=== PATIENT | male | born 1960 | race Caucasian/White ===

== ENCOUNTER → 2019-02-26 | Outpatient (CLI) | payer BC ==
[2019-02-26 15:40] LABS: HCT 43.1 % (39.0-53.0); HGB 14.4 gm/dL (13.0-17.5); MCH 31.6 pg (25.0-35.0); MCHC 33.5 g/dL (31.0-37.0); MCV 94.4 fL (80.0-100.0); Mean Platelet Volume 7.7; Platelet Count 270 k/uL (150-450); RBC 4.57 m/uL (4.30-5.90); RDW 13.8 % (11.5-15.5); WBC 12.1 k/uL (3.8-10.6)
[2019-02-26 15:50] LABS: African American GFR (CKD) >90 (>60 ml/min/1.73 sqM); Anion Gap 7 mmol/L; Blood Urea Nitrogen 15 mg/dL (9-20); Carbon Dioxide 28 mmol/L (22-30); Chloride 102 mmol/L (98-107); Potassium 4.6 mmol/L (3.5-5.1); Sodium 137 mmol/L (137-145)
== END | disposition home or self-care (01) ==
LOC: LABPAT 14:50
PROVIDERS: ATTEND Internal Medicine Cardiovascular Disease
DX: Z01.812 Encounter for preprocedural laboratory examination (principal); I48.1 Persistent atrial fibrillation
CPT/HCPCS: 36415; 80051; 82565; 84520; 85027

== ENCOUNTER 2019-03-01 07:18 | Day surgery (SDC) | payer BC ==
[2019-02-26 11:53] VITALS: BMI 37.2
[~2019-03-01 07:18] MED LIST: SODIUM CHLORIDE 0.9% 1,000 ML IV SCH
[2019-03-01] MEDS ORDERED: SODIUM CHLORIDE 0.9% 500 ML 500 ML IV ONE (07:39)
[2019-03-01 07:46] VITALS: TEMP 97.9
[2019-03-01] MEDS ORDERED: PROPOFOL 10 MG/ML 20 ML VIAL IV ONE (08:54)
--- NOTE | 2019-03-01 09:12 | P.PCN ---
Date of Procedure: 03/01/19 Preoperative Diagnosis: Atrial fibrillation Postoperative Diagnosis: The same Procedure(s) Performed: Cardioversion Description of Procedure: Patient was brought to the lab in a fasting state. He was draped and prepped is in the usual fashion. Patient was given anesthesia by department of anesthesia. She claims shocks of 200 followed by 300 J was applied with anterior-posterior paddles. Patient failed to convert to sinus rhythm. Tolerated the procedure well. Final impression: Unsuccessful attempt at cardioversion. Plan: Patient will be discharged home in 2-3 hours. Patient will be continued on anticoagulation therapy and rate control
[2019-03-01] MEDS ORDERED: SODIUM CHLORIDE 0.9% 1,000 ML IV SCH (09:15)
[2019-03-01 10:47] VITALS: BP 149/77; PULSE 59; RESP 16
== END 2019-03-01 10:47 | disposition home or self-care (01) ==
LOC: CATHCVL 07:18
PROVIDERS: ATTEND Internal Medicine Cardiovascular Disease
DX: I48.1 Persistent atrial fibrillation (principal); I42.0 Dilated cardiomyopathy; I10 Essential (primary) hypertension; E78.5 Hyperlipidemia, unspecified; F10.10 Alcohol abuse, uncomplicated; J44.9 Chronic obstructive pulmonary disease, unspecified; F17.210 Nicotine dependence, cigarettes, uncomplicated; Z79.01 Long term (current) use of anticoagulants; Z79.51 Long term (current) use of inhaled steroids; Z79.899 Other long term (current) drug therapy
CPT/HCPCS: 92960; J2704

== ENCOUNTER → 2020-08-23 | Outpatient (CLI) | payer BC ==
--- NOTE | 2020-08-23 16:04 | MR ---
EXAMINATION TYPE: MR lumbar spine wo/w con DATE OF EXAM: 08/23/2020 COMPARISON: None HISTORY: Low back pain CONTRAST: Standard multiplanar, multisequence MRI departmental protocol utilizing 10 mL intravenous gadolinium contrast. Lumbar vertebra have fairly normal alignment. There is a few millimeter anterior subluxation of L4 in relation L5. There is disc space narrowing throughout the lumbar spine from L1 to S1. There is no co mpression fracture. Posterior elements are intact. I see no focal bone destruction. Contrast images s how no pathologic enhancement. There is left side L1-2 small posterior disc herniation. There is no s ignificant impingement on the spinal canal. I see no significant spinal stenosis. Sacroiliac joints a re intact. There is no lumbar paraspinal mass. IMPRESSION: Small posterior left side L1 -2 lumbar disc herniation. No significant spinal stenosis. No fracture. Mild multilevel lumbar spondylotic changes.
== END | disposition home or self-care (01) ==
LOC: RADMRIMAIN 09:37
PROVIDERS: ATTEND Physical Medicine & Rehabilitation
DX: M51.26 Other intervertebral disc displacement, lumbar region (principal); M47.816 Spondylosis without myelopathy or radiculopathy, lumbar region
CPT/HCPCS: 72158; A9585

== ENCOUNTER → 2022-06-16 | Outpatient (CLI) | payer BC ==
--- NOTE | 2022-06-16 17:10 | MR ---
EXAMINATION TYPE: MR lumbar spine wo con DATE OF EXAM: 06/16/2022 8:19 AM COMPARISON: Lumbar spine MRI 08/23/2020 CLINICAL INDICATION:Male, 61 years old with history of M54.16 RADICULOPATHY, LUMBAR REGION; TECHNIQUE: Multi planar, multi sequence imaging was performed utilizing: T1-weighted, T2-weighted, a nd turbo inversion recovery imaging of the lumbar spine. IV Contrast: None. FINDINGS: Alignment: The lumbar vertebral bodies have preserved heights. There is grade 1 anterior listhesis of L4 and L5. Cord: The conus medullaris and the distal spinal cord appear unremarkable with regards to their signa l intensity and morphology. Bones/Discs: Scattered Modic endplate changes are seen throughout the spine worse at L1-L2. Inversion recovery edema at the adjoining L5-S1 endplates is present as well as scattered endplate bony edema presumably around some Schmorl's nodes. Multilevel disc desiccation is present. L1-L2: Eccentric left herniation results in moderate left neural foraminal stenosis. There is mild sp inal canal stenosis. The right neural foramen is mildly narrowed. L2-L3: Disc bulge and facet joint arthropathy as well as increased epidural fat result in mild spinal canal stenosis and mild to moderate bilateral neural foraminal stenosis. L3-L4: Disc bulge eccentric left with facet joint arthropathy and increased epidural fat result in mo derate spinal canal stenosis. There is mild to moderate bilateral neural foraminal stenosis. L4-L5: Grade 1 anterolisthesis at this level with disc bulge and facet joint arthropathy result in bi lateral [id number] neural foraminal stenosis and moderate to severe spinal canal stenosis. L5-S1: There is increase epidural fat at this level. Facet joint arthropathy result in moderate to se cathleen bilateral neural foraminal stenosis. Other findings: None. IMPRESSION: 1. L4-L5 grade 1 anterolisthesis with moderate to severe spinal canal stenosis. This is worse than p rior. 2. L1-L2 left foraminal disc herniation with moderate left neural foraminal stenosis., Similar to pr ior. 3. L3-L4, L4-L5 and L5-S1 epidural lipomatosis, similar to prior.
== END | disposition home or self-care (01) ==
LOC: RADMRIMAIN 07:32
PROVIDERS: ATTEND Nurse Practitioner Family
DX: M47.27 Other spondylosis with radiculopathy, lumbosacral region (principal); M43.16 Spondylolisthesis, lumbar region; M99.74 Connective tissue and disc stenosis of intervertebral foramina of sacral region; M51.16 Intervertebral disc disorders with radiculopathy, lumbar region; M48.061 Spinal stenosis, lumbar region without neurogenic claudication; E88.2 Lipomatosis, not elsewhere classified
CPT/HCPCS: 72148